=== PATIENT | male | born 1990 | race Caucasian/White ===

== ENCOUNTER 2016-05-19 18:28 | Emergency (ER) | payer OTHER ==
[~2016-05-19] VITALS: Ht 190.5 cm; Wt 138.0 kg
[~2016-05-19 18:28] MED LIST: PROC25SU30 RC; PSYL0.4C PO; RIZA10TA23 PO
[2016-05-19 18:44] VITALS: BP 155/106; PULSE 114; RESP 16; O2SAT 98
--- NOTE | 2016-05-19 19:18 | ED.REPORT ---
HPI-General Illness Date of Service May 19, 2016 ED Provider: Debby Burks MD A 25 year old male with a history of acid reflex and IBS presents to the ED from complaining of lightheadedness onset today. He reports that when he bends over and raises back up, he gets lightheaded, disoriented, and describes a sensation of staring at something really hard that he has experienced before. Associated symptoms include intermittent mild SOB with 2-3 very intense episodes occurring today. SOB is new, and he does not experience it baseline. He has nausea that has been present all day long, a globular sensation in his throat. He also woke up with a bruise on his chin, the origin of which he is unsure of, but he did shave 3 days ago. He reports feeling cold but denies any fever, chills, chest pain, dysuria, or lower extremity swelling. He decided to visit who told him to come to the ED. The patient reports having baseline diarrhea and does not think that there has been any change in it. He also reports having baseline tightness in jaw. The patient has not done any recent international travel, and does not think that they have any blood clot risk factors. He has been eating and drinking normally, but he may be dehydrated due to chronic diarrhea. The patient reports that their vitamin B12 has been low since March, and that they have since been taking B12 supplements for lethargia. He has a family history of stroke. Nursing Notes Stated Complaint: INCREASING HEART RATE Chief Complaint: Dysrhythmia/Cardiac Nursing Notes Reviewed: Yes Allergies: Coded Allergies: Sulfa (Sulfonamide Antibiotics) (Verified Allergy, Mild, Dizziness, stuttering, 05/19/16) hydrocodone (Verified Allergy, Unknown, 05/19/16) Scheduled Psyllium Husk (Psyllium) 0.4 Gram Capsule 0.8 GM PO BID Scheduled PRN Prochlorperazine Maleate (Compazine Suppository) 25 Mg Supp.rect 25 MG RC Q8 PRN PRN For Nausea/Vomiting Rizatriptan ODT (Maxalt [employer]) 10 Mg Tablet 10 MG PO [id number] PRN PRN migraine General Time Seen by MD: 19:17 Chief Complaint Other (lightheadedness) Hx Obtained From: Patient Arrived By: Walk-in Sudden in Onset?: No Onset Occurred: 9 - 12 hours ago Symptom Duration: Intermittent Recent Healthcare: No recent doctor visit Similar Sx Previous: No Past Medical History Past Medical History Acid reflux IBS anxiety with panic attacks Past Surgical History Reports: Cholecystectomy Family History migraines - mother Reports: Stroke Smoking History Never Smoker Social History Alcohol Use: Denies alcohol use Drug Use: Denies drug use Other Social History: Good social support, Local resident Ambulatory Status Independent Review of Systems Globular sensation in throat. Bruise on chin. Feels cold. Denies lower extremity swelling. Full Review of Systems Constitutional: Denies: Chills, Fever Respiratory: Reports: Shortness of breath Cardiovascular: Denies: Chest pain GI: Reports: Nausea Male: Denies Dysuria Neurologic: Reports: Lightheaded Complete sys rev & neg: except as marked. Physical Exam Vital Signs Vital Signs Date Time Temp Pulse Resp B/P Pulse Ox O2 Delivery O2 Flow Rate FiO2 05/19/16 18:44 36.8 114 16 155/106 98 Room Air Initial VS: Reviewed General/Constitutional: Awake, Alert Head / Eyes: Atraumatic, Normocephalic, PERRL, EOMI ENT: Atraumatic, Airway patent, Mucous membranes moist Neck: Atraumatic, Full range of motion Respiratory / Chest: Atraumatic, No respiratory distress Cardiovascular: Heart rate NL, Regular rhythm, Heart sounds NL, No gallop, No murmurs, No rubs Abdomen: Atraumatic, No guarding, No rebound Back: Atraumatic, Full range of motion Upper Extremities Upper Extremity / MS: Atraumatic, Full range of motion Lower Extremity / Pelvis / MS: Atraumatic, Full range of motion Skin: Atraumatic, Color NL, Warm, Dry Neurologic: Oriented X3, Speech NL Interpretation & Diagnostics Lab Results Interpretation Result Diagram: 05/19/16191405/19/161914 Test 05/19/16 19:15 05/19/16 19:20 White Blood Count 7.1th/mm3 (3.8-10.1) Red Blood Count 5.26mil/mm3 (4.40-5.80) Hemoglobin 15.9g/dL (13.8-17.2) Hematocrit 47.0% (41.0-50.0) Mean Corpuscular Volume 89.4fL (81-100) Mean Corpuscular Hemoglobin 30.2pg (27.0-35.0) Mean Corpuscular Hemoglobin Concent 33.8% (32.0-37.0) Red Cell Distribution Width 12.8% (12.3-15.4) Platelet Count 266bil/L (150-400) Neutrophils (%) (Auto) 60.7% (40-74) Lymphocytes (%) (Auto) 25.3% (14-46) Monocytes (%) (Auto) 10.0% (4-12) Eosinophils (%) (Auto) 3.1% (0-5) Basophils (%) (Auto) 0.6% (0-3) D-Dimer < 0.5mg/L (<0.50) Sodium Level 141mEq/L (134-144) Potassium Level 3.8mEq/L (3.5-5.2) Chloride Level 102mEq/L (97-108) Carbon Dioxide Level 23mmol/L (18-29) Blood Urea Nitrogen 10mg/dL (6-20) Creatinine 0.70mg/dL (0.76-1.27) Estimat Glomerular Filtration Rate 144mL/min (>59) Glucose Level 101mg/dL (60-99) Calcium Level 9.2mg/dL (8.5-10.1) Magnesium Level 1.9mg/dL (1.6-2.6) Total Bilirubin 0.7mg/dL (0.0-1.2) Aspartate Amino Transf (AST/SGOT) 21U/L (0-50) Alanine Aminotransferase (ALT/SGPT) 41U/L (0-44) Alkaline Phosphatase 79U/L (25-150) Total Protein 7.6g/dL (6.4-8.4) Albumin 4.4g/dL (3.4-5.0) Lipase 56U/L (13-60) Hold Urine Received (Received) Re-Eval/Medical Decision Source of Hx: Old records Time of Eval: 20:41 Re-Evaluation/Progress Note: Rechecked patient who feels better after recieving a liter of fluid. Explained test results, diagnosis, and plan for discharge. Patient understands and agrees with the plan. Counseled Regarding: Diagnosis, Lab results, Need for follow-up, When/why to return to ED Discharge & Departure Primary Impression: Dehydration Disposition: Home Discharge Condition All VS Reviewed: Yes Condition: Improved Additional Instructions: I didn't find anything bad or scary on labs on in the EKG. [place] is good today ! Your kidney function, liver studies, red blood cells and white blood cells are all normal. Your electrolytes were also in the normal ranges You felt better after a liter of IV fluid. I suspect the "wooziness"/lightheaded feeling today is mild dehydration as a result of your chronic diarrhea. Make sure you are keeping yourself hyrdatate. Referrals: Jea-nPaul Sears MD (PCP) Scribe Attestation Portions of this note were transcribed by Norman Marinelli. I, Dr. Burks personally performed the history, physical exam and medical decision-making; I reviewed and confirmed the accuracy of the information in the transcribed note. Signed by: Marga Garibay, 05/19/20162053. copies to: Jean-Paul Sears MD, Shawna L MD May 19, 2016 19:18 Norman Marinelli May 19, 2016 19:35
[2016-05-19] MEDS ORDERED: 0.9% Sodium Chloride 1,000 ML IV ONE (19:35)
[2016-05-19 19:40] LABS: BASOPHILS % (AUTO) 0.6 % (0-3); EOSINOPHILS % (AUTO) 3.1 % (0-5); Mean Corpuscular Hemoglobin 30.2 pg (27.0-35.0); Mean Corpuscular Volume 89.4 fL (81-100); NEUTROPHILS % (AUTO) 60.7 % (40-74); Platelet Count 266 bil/L (150-400)
[2016-05-19 20:25] LABS: Magnesium 1.9 mg/dL (1.6-2.6)
== END 2016-05-19 21:18 | disposition home or self-care (01) ==
LOC: SED 18:28
DX: E86.0 Dehydration (principal); R06.02 Shortness of breath; S00.83XA Contusion of other part of head, initial encounter; X58.XXXA Exposure to other specified factors, initial encounter; Y93.9 Activity, unspecified; Y92.9 Unspecified place or not applicable; Y99.9 Unspecified external cause status; Z88.5 Allergy status to narcotic agent; Z88.2 Allergy status to sulfonamides
CPT/HCPCS: 36415; 80053; 83690; 83735; 85025; 85379; 96360; 99285; J7030